=== PATIENT | female | born 1935 | race Caucasian/White ===

== ENCOUNTER 2022-04-19 17:00 | Emergency (ER) | payer MEDICARE, BC ==
[~2022-04-19] VITALS: Ht 162.6 cm; Wt 63.6 kg
[2022-04-19 19:26] LABS: BASOPHILS # (AUTO) 0.1 X10'3 (0-0.2); BASOPHILS % (AUTO) 0.7 % (0-1); EOSINOPHILS # (AUTO) 0.2 X10'3 (0-0.9); HEMATOCRIT 36.7 % (35.0-45.0); HEMOGLOBIN 12.3 g/dl (12.0-16.0); LYMPHOCYTES # (AUTO) 2.6 X10'3 (1.1-4.8); LYMPHOCYTES % (AUTO) 30.5 % (21-51); MEAN CORPUSCULAR HGB CONC 33.6 g/dL (33.0-36.5); MEAN CORPUSCULAR VOLUME 89.5 FL (78-98); MEAN PLATELET VOLUME 7.9 FL (7.4-10.4); MONOCYTES # (AUTO) 0.9 X10'3 (0-0.9); MONOCYTES % (AUTO) 10.5 % (2-12); NEUTROPHILS # (AUTO) 4.7 X10'3 (1.8-7.7); NEUTROPHILS % (AUTO) 56.3 % (42-75); PLATELET COUNT 328 X10'3 (140-440); RED BLOOD COUNT 4.09 X10'6 (4.20-5.60); WHITE BLOOD COUNT 8.4 X10'3 (4.5-11.0)
[2022-04-19 19:35] LABS: ALANINE AMINOTRANSFERASE 24 U/L (12-78); ALBUMIN 3.7 G/DL (3.4-5.0); ALBUMIN/GLOBULIN RATIO 0.9 (1.1-1.5); ALKALINE PHOSPHATASE 110 IU/L (46-116); ANION GAP 9 (8-16); ASPARTATE AMINO TRANSFERASE 20 U/L (10-37); BILIRUBIN,TOTAL 0.2 MG/DL (0.1-1.0); BLOOD UREA NITROGEN 27 MG/DL (7-18); BUN/CREATININE RATIO 18.2 (6.6-38.0); CALCIUM 9.7 MG/DL (8.5-10.1); CHLORIDE 104 MMOL/L (99-107); CREATININE 1.48 MG/DL (0.40-0.90); GLUCOSE 105 MG/DL (70-104); POTASSIUM 5.1 MMOL/L (3.5-5.1); SODIUM 141 MMOL/L (135-145); TOTAL CARBON DIOXIDE 28.2 MMOL/L (24-32); TOTAL PROTEIN 7.9 G/DL (6.4-8.2); eGFR 34 ML/MIN
[2022-04-19] MEDS ORDERED: iohexol 350MG/ML 100ml bottle IV ONE (22:02)
[2022-04-19] MEDS ORDERED: apixaban 5mg tablet PO STA (23:05)
[2022-04-19] MEDS ORDERED: APIX5TAB3 PO (23:15)
[2022-04-19 23:29] VITALS: BP 164/75
--- NOTE | 2022-04-19 23:30 | NUR ---
Patient discharged by quintin Choi prior to primary nurse assessment. See MD assessment.
== END 2022-04-19 23:33 | disposition home or self-care (01) ==
LOC: ER 17:01
DX: I82.401 Acute embolism and thrombosis of unspecified deep veins of right lower extremity (principal); M79.601 Pain in right arm; R06.02 Shortness of breath; J44.9 Chronic obstructive pulmonary disease, unspecified; Z98.890 Other specified postprocedural states; Z79.899 Other long term (current) drug therapy
CPT/HCPCS: 36415; 71045; 71275; 80053; 83880; 84484; 85025; 93005; 99285; J3490; Q9967